=== PATIENT | female | born 1980 ===

== ENCOUNTER → 2023-04-13 | Outpatient (CLI) | payer OTHER ==
[2023-04-23 09:29] LABS: HPV GENOTYPE 16 Not Detected; HPV GENOTYPE 18 Not Detected; HPV HIGH RISK Not Detected; HPV SOURCE Cervical
== END ==
LOC: LAB 17:26 → LAB SHORT 17:26
PROVIDERS: Family Medicine
DX: Z01.419 Encounter for gynecological examination (general) (routine) without abnormal findings (principal)
CPT/HCPCS: 87624; G0123